=== PATIENT | male | born 1975 | race Caucasian/White ===

== ENCOUNTER 2018-11-11 11:17 | Emergency (ER) | payer OTHER ==
[~2018-11-11] VITALS: Wt 78.2 kg
[~2018-11-11 11:17] MED LIST: DENIES
[2018-11-11 11:36] VITALS: BP 153/92; PULSE 74; RESP 20
[2018-11-11] MEDS ORDERED: CEPH-443 PO (12:14)
--- NOTE | 2018-11-11 12:19 | ERD ---
ER Documentation Chief Complaint Chief Complaint dysuria, urinary freq HPI 42-year-old male presents with complaint of dysuria for the past 2 weeks. States that he was prescribed 2 different antibiotics by different providers since that time. He was prescribed ciprofloxacin but he stopped taking it because that is causing him severe diarrhea and vomiting. In addition, he is prescribed Bactrim which she has almost finished taking, stating he only has 6 pills left. However, he states that he continues to have dysuria as well as some discharge from his penis. States that he is sexually active with different women not using condoms. Denies fevers, chills, hematuria, nausea, vomiting, diarrhea. ROS All systems reviewed and are negative except as per history of present illness. Medications Home Meds Active Scripts Cephalexin* (Keflex*) 500 Mg Capsule, 500 MG PO QID for 7 Days, CAP Prov:ELIZABETH HARMON 11/11/18 Reported Medications [Denies] No Conflict Check 02/17/10 Allergies Allergies: Coded Allergies: No Known Drug Allergies (Verified Allergy, Mild, 02/19/10) PMhx/Soc History of Surgery: Yes (10 YEARS AGO RIGHT FOOT SURGERY WITH IMPLANTED METAL) Anesthesia Reaction: No Hx Neurological Disorder: No Hx Respiratory Disorders: No Hx Cardiac Disorders: No Hx Psychiatric Problems: No Hx Miscellaneous Medical Probl: No Hx Alcohol Use: Yes Hx Substance Use: No Hx Tobacco Use: No FmHx Family History: No diabetes, No coronary disease, No other Physical Exam Vitals Vital Signs Date Temp Pulse Resp B/P (MAP) Pulse Ox O2 O2 Flow FiO2 Time Delivery Rate 11/11/18 99.4 74 20 153/92 98 11:36 (112) Physical Exam Const: No acute distress Head: Atraumatic Eyes: Normal Conjunctiva ENT: Normal External Ears, Nose and Mouth. Neck: Full range of motion. No meningismus. Resp: Clear to auscultation bilaterally Cardio: Regular rate and rhythm, no murmurs Abd: Soft, non tender, non distended. Normal bowel sounds Skin: No petechiae or rashes Back: No midline or flank tenderness Ext: No cyanosis, or edema Neur: Awake and alert Psych: Normal Mood and Affect Results 24 hrs Laboratory Tests Test 11/11/18 12:50 Bedside Urine pH (LAB) 6.0 Bedside Urine Protein (LAB) 1+ Bedside Urine Glucose (UA) Negative Bedside Urine Ketones (LAB) Negative Bedside Urine Blood 3+ Bedside Urine Nitrite (LAB) Negative Bedside Urine Leukocyte Esterase (L 3+ Current Medications Medications Dose Sig/William Start Time Status Last (Trade) Ordered Route PRN Stop Time Admin Dose Reason Admin Ceftriaxone 250 mg ONCE ONCE 11/11/18 DC Sodium IM 12:30 11/11/18 (Rocephin) 12:31 1,000 mg ONCE ONCE 11/11/18 DC Azithromycin PO 12:30 11/11/18 (Zithromax) 12:31 Lidocaine 5 ml ONCE ONCE 11/11/18 DC (Xylocaine INJ 12:30 11/11/18 1% (Mpf)) 12:31 Lidocaine 5 ml ONCE ONCE 11/11/18 DC 11/11/18 (Xylocaine INJ 13:00 11/11/18 12:58 1% (Mpf)) 13:01 Ceftriaxone 250 mg ONCE ONCE 11/11/18 DC 11/11/18 Sodium IM 13:00 11/11/18 12:58 (Rocephin) 13:01 1,000 mg ONCE ONCE 11/11/18 DC 11/11/18 Azithromycin PO 13:00 11/11/18 12:58 (Zithromax) 13:01 Procedures/MDM MDM: Patient will be given Rx for Keflex since the Bactrim and Cipro floxacillin have not been effective for him. In addition his urine was sent out for culture and urine dip performed. Additionally, since he is not having the symptoms for 2 weeks patient was advised to go see Dr. Viramontes. Because he is having unprotected intercourse and complaining of penile discharge, patient will be treated for STD with azithromycin and Rocephin. In addition, patient was advised to continue taking the Bactrim as he only has 6 pills left but also take Keflex. Patient will call back in 3 days to get results of the urine culture and to determine whether the Keflex is the correct prescription for him. If not prescription could be changed. Patient agreed to do this. All this was explained to patient with shank skinner present. All this is explained to patient I have low suspicion for pyelonephritis, nephrolithiasis, appendicitis, epididymitis, urethritis, orchitis, balanitis, prostatitis, phimosis, priapism, penile contusion, incarcerated hernia or strangulated hernia, or any emergent condition. Communication with patient both during the exam and instructions for discharge were performed with using a shank skinner . Patient gave verbal confirmation to the practitioner, through the shank skinner, that they understood everything that was being said to them. DISCLAIMER: Inadvertent spelling and grammatical errors are likely due to EHR/dictation software use and do not reflect on the overall quality of patient care. Also, please note that the electronic time recorded on this note does not necessarily reflect the actual time of the patient encounter. Departure Diagnosis: Primary Impression: Dysuria Condition: Stable Patient Instructions: Dysuria Referrals: COURTNEY LANDRY MD Additional Instructions: FOLLOW UP WITH YOUR PRIMARY CARE PHYSICIAN TOMORROW.Return to this facility if you are not improving as expected. In addition, please follow-up with Dr. Pappas regarding your continuous pain when urination. His phone numbers in your packet. ELIZABETH HARMON Nov 11, 2018 12:19
[2018-11-11] MEDS ORDERED: LIDOCAINE 1% (MPF) 5 ML VIAL INJ ONE ×2 (12:30→13:00)
[2018-11-11] MEDS ORDERED: CEFTRIAXONE 250 MG INJ IM ONE ×2 (12:30→13:00)
[2018-11-11] MEDS ORDERED: AZITHROMYCIN 500 MG TAB PO ONE ×2 (12:30→13:00)
== END 2018-11-11 13:12 | disposition left against medical advice (07) ==
LOC: FTE 11:17
DX: R30.0 Dysuria (principal)
CPT/HCPCS: 81003; 87086; 96372; 99284; J0696